=== PATIENT | male | born 1940 | race Caucasian/White ===

== ENCOUNTER 2016-10-08 16:24 | Emergency (ER) | payer OTHER ==
[2016-10-08 16:32] VITALS: BP 153/70; PULSE 61; TEMP 97.5; BMI 24.7
--- NOTE | 2016-10-08 16:38 | PDOC ---
History of Present Illness - General History Source: Patient Exam Limitations: No Limitations <Enid Lema - Last Filed: 10/08/16 18:45> - General History Source: Patient, EMS Exam Limitations: No Limitations - History of Present Illness Initial Comments: 10/08/16 16:55 The patient is a 76 year old male, with a significant past medical history of hypertension and COPD, who presents to the emergency department BIBA s/p unwitnessed mechanical fall earlier today. Patient reports falling several hours ago, however, EMS reports he fell several days ago. The patient reports he lives at home alone and was not able to get up on his own. Patient reports using his life alert to call EMS for assistance. EMS reports a laceration to the right arm and left forearm s/p fall. Patient denies any head trauma or LOC. The patient denies that he is on any blood thinners. The patient denies any chest pain, shortness of breath, diaphoresis or palpitations prior to or after fall. The patient denies any fever, chills, cough, headache, or dizziness. Allergies: None reported. Past Surgical History: None reported. Social History: Current everyday smoker. ETOH use. Denies drug use. PCP: Dr. Patel <Jeannie Samano - Last Filed: 10/08/16 18:49> - General Chief Complaint: Injury Stated Complaint: FALL Time Seen by Provider: 10/08/16 16:26 Past History - Past Medical History Anemia: No Asthma: No Cancer: No Cardiac Disorders: Yes CVA: No COPD: Yes CHF: No Dementia: No Diabetes: No GI Disorders: No Disorders: No HTN: Yes Hypercholesterolemia: Yes Liver Disease: No Suicide Attempt (Hx): No Seizures: No Thyroid Disease: No - Surgical History Abdominal Surgery: No Appendectomy: No Cardiac Surgery: No Cholecystectomy: No Lung Surgery: No Neurologic Surgery: No Orthopedic Surgery: Yes (HIP) - Immunization History Td Vaccination: No Immunization Up to Date: No - Psycho/Social/Smoking Cessation Hx Anxiety: No Suicidal Ideation: No Smoking Status: Yes Smoking History: Current every day smoker Have you smoked in the past 12 months: Yes Number of Cigarettes Smoked Daily: 20 Cigars Per Day: 0 Information on smoking cessation initiated: Yes 'Breaking Loose' booklet given: 10/08/16 Hx Alcohol Use: Yes Drug/Substance Use Hx: No Substance Use Type: Alcohol Hx Substance Use Treatment: No <Enid Lema - Last Filed: 10/08/16 18:45> <Jeannie Samano - Last Filed: 10/08/16 18:49> - Past Medical History Allergies/Adverse Reactions: Allergies Allergy/AdvReac Type Severity Reaction Status Date / Time No Known Allergies Allergy Verified 10/08/16 16:25 Home Medications: Ambulatory Orders Cholecalciferol (Vitamin D3) [Vitamin D] 2,000 unit PO DAILY 08/05/14 Ferrous Sulfate [Feosol] 325 mg PO DAILY 08/05/14 Losartan 50Mg/Hctz 12.5MG [Hyzaar -] 1 tab PO DAILY 08/05/14 Trauma Specific PMHX - Complaint Specific PMHX Back Injury: No <Enid Lema - Last Filed: 10/08/16 18:45> Review of Systems - Review of Systems Able to Perform ROS?: Yes Comments:: 10/08/16 16:55 GENERAL/CONSTITUTIONAL: No: fever, chills, weakness, loss of appetite. HEAD, EYES, EARS, NOSE AND THROAT: No: change in vision, ear pain, discharge, sore throat, throat swelling. CARDIOVASCULAR: No: chest pain, lightheadedness, palpitations, syncope RESPIRATORY: No: cough, shortness of breath, wheezing, hemoptysis, stridor. GASTROINTESTINAL: No: nausea, vomiting, abdominal cramping, diarrhea, rectal bleeding, constipation. GENITOURINARY: No: dysuria, hematuria, frequency, urgency, flank pain. MUSCULOSKELETAL: No: back pain, neck pain, joint pain, muscle swelling or pain SKIN AND BREASTS: No: lesions, pallor, rash or easy bruising. NEUROLOGIC: Yes: +mechanical fall. No: headache, vertigo, paresthesias, weakness ENDOCRINE: No: unexplained weight gain or loss HEMATOLOGIC/LYMPHATIC: No: anemia, easy bleeding, swelling nodes <Jeannie Samano - Last Filed: 10/08/16 18:49> *Physical Exam - Vital Signs Last Vital Signs Temp Pulse Resp BP Pulse Ox 97.5 F L 61 18 153/70 95 10/08/16 16:24 10/08/16 16:24 10/08/16 16:24 10/08/16 16:24 10/08/16 16:24 <Enid Lema - Last Filed: 10/08/16 18:45> - Vital Signs Last Vital Signs Temp Pulse Resp BP Pulse Ox 97.5 F L 61 18 153/70 95 10/08/16 16:24 10/08/16 16:24 10/08/16 16:24 10/08/16 16:24 10/08/16 16:24 - Physical Exam Comments: 10/08/16 16:55 GENERAL: The patient is in no acute distress. Alert and oriented x3. HEAD: Normal with no signs of trauma. EYES: PERRLA, EOMI, sclera anicteric, conjunctiva clear. ENT: Ears normal, nares patent, oropharynx clear without exudates. Moist mucous membranes. NECK: Normal range of motion, supple without lymphadenopathy, JVD, or masses. LUNGS: Breath sounds equal, clear to auscultation bilaterally. No wheezes, and no crackles. HEART:Regular rate and rhythm, normal S1 and S2 without murmur, rub or gallop. ABDOMEN: Soft, nontender, normoactive bowel sounds. No guarding, no rebound. EXTREMITIES: Normal range of motion, no edema. No clubbing or cyanosis. No erythema, or tenderness. NEUROLOGICAL: Cranial nerves II through XII grossly intact. Normal speech. No focal neurological deficits. MUSCULOSKELETAL: Back non-tender to palpation, no CVA tenderness SKIN: 3 skin tears (1 to the right lateral elbow and 2 to the left forearm). Warm, normal turgor, no rashes. <Jeannie Samano - Last Filed: 10/08/16 18:49> ED Treatment Course - RADIOLOGY Radiograph Interpretation: 10/08/16 18:48 EXAM: Head CT INTERPRETED BY: Dr. Dalal REVIEWED BY: Dr. Lema IMPRESSION: No significant interval change. Moderate atrophy and chronic microvascular ischemic changes without evidence of acute intracranial pathology. <Jeannie Samano - Last Filed: 10/08/16 18:49> Medical Decision Making - Medical Decision Making 10/08/16 16:38 A portion of this note was documented by scribe services under my direction. I have reviewed the details of the note, within reason, and agree with the documentation with the following case summary and management plan written by me. Nursing documentation reviewed and incorporated into medical decision making 10/08/16 17:50 THis 76 yo M presents to the ER via EMS s/p a fall from standing Pt was assisted to standing by passerbyers He was in the hallway of his apartment building Fall occurred several hours prior to arrival in the ER He denies head trauma, LOC, amneisa Pt denies pain in any location On examination: Pt is discheveled Wearing unclean clothing A&O x 3 RRR Lungs Clear Answering all questions appropriately Moves all extremities, no difficulty No external signs of head trauma 3 skin tears Will do CT head (given age, ?h/o alcohol abuse, high risk for SDH) Will give Boostrix given skin tears Will discharge to home PT has someone to pick him up 10/08/16 18:[address], no acute pathology Will discharge PT anxious to go home <Enid Lema - Last Filed: 10/08/16 18:45> *DC/Admit/Observation/Transfer - Discharge Dispostion Admit: No <Enid Lema - Last Filed: 10/08/16 18:45> - Attestations Scribe Attestion: 10/08/16 16:56 Documentation prepared by Jeannie Smaano, acting as medical records receptionist for Enid Lema MD. <Jeannie Samano - Last Filed: 10/08/16 18:49> Diagnosis at time of Disposition: Fall from standing Qualifiers: Encounter type: initial encounter Qualified Code(s): W19.XXXA - Unspecified fall, initial encounter Skin tear of elbow without complication Qualifiers: Encounter type: initial encounter Laterality: right Qualified Code(s): S51.011A - Laceration without foreign body of right elbow, initial encounter Skin tear of left forearm without complication Qualifiers: Encounter type: initial encounter Qualified Code(s): S51.812A - Laceration without foreign body of left forearm, initial encounter - Discharge Dispostion Disposition: HOME Condition at time of disposition: Improved - Referrals Referrals: Cali Patel MD [Primary Care Provider] - - Patient Instructions Printed Discharge Instructions: How to Prevent Falls, DI for Abrasion Additional Instructions: [place] Thank you for coming in to the ER Please be careful when walking Please call 911 if you fall and need help Please follow up with your primary care physician within 1 week Return to the ER for any other concerns or complaints
[2016-10-08] MEDS ORDERED: DIPHTH,PERTUSS(ACELL),TET 0.5 ML DISP.SYRIN IM ONE (16:48)
== END 2016-10-08 19:16 | disposition home or self-care (01) ==
LOC: FER 16:24
DX: S51.812A Laceration without foreign body of left forearm, initial encounter (principal); S51.011A Laceration without foreign body of right elbow, initial encounter; F17.210 Nicotine dependence, cigarettes, uncomplicated; J44.9 Chronic obstructive pulmonary disease, unspecified; I10 Essential (primary) hypertension; E78.00 Pure hypercholesterolemia, unspecified
CPT/HCPCS: 70450-TC; 90715; 99282-25

== ENCOUNTER 2016-11-03 19:43 | Emergency (ER) | payer OTHER ==
[2016-11-03 20:03] VITALS: BP 143/88; PULSE 72; TEMP 98.5; BMI 24.1
--- NOTE | 2016-11-03 20:21 | PDOC ---
History of Present Illness - History of Present Illness Initial Comments: 11/03/16 20:40 The patient is a 75 year old male, with a significant past medical history of hypertension, who presents to the emergency department via ems with a laceration to his right hand s/p falling today. The patient presents intoxicated and states he cannot recall the events of the fall, but does recall using his medical alert button which called for an ambulance. He states he walks with a cane at baseline. He denies any pain at this current time. He admits to drinking a couple of shots of scotch a day. The patient presents with his family members who reports the patient has been falling frequently. The patient states he would be willing to go for alcohol detox at this time. He denies chest pain, shortness of breath, headache and dizziness. He denies fever, chills, nausea, vomit, diarrhea and constipation. He denies dysuria, frequency, urgency and hematuria. Allergies: NKDA Social history: daily tobacco use (pack a day), lives home alone. PCP - Dr. Mcclain <Emily Messer - Last Filed: 11/03/16 20:49> <Kecia Hooks - Last Filed: 11/04/16 02:41> - General Chief Complaint: Injury Stated Complaint: RIGHT HAND INJURY Time Seen by Provider: 11/03/16 19:54 Past History <Emily Messer - Last Filed: 11/03/16 20:49> - Past Medical History Anemia: No Asthma: No Cancer: No Cardiac Disorders: Yes CVA: No COPD: Yes CHF: No Dementia: No Diabetes: No GI Disorders: No Disorders: No HTN: Yes Hypercholesterolemia: Yes Liver Disease: No Psychiatric Problems: Yes (ALCOHOLISM) Suicide Attempt (Hx): No Seizures: No Thyroid Disease: No - Surgical History Abdominal Surgery: No Appendectomy: No Cardiac Surgery: No Cholecystectomy: No Lung Surgery: No Neurologic Surgery: No Orthopedic Surgery: Yes (HIP) - Immunization History Td Vaccination: No Immunization Up to Date: No - Psycho/Social/Smoking Cessation Hx Anxiety: No Suicidal Ideation: No Smoking Status: Yes Smoking History: Current every day smoker Have you smoked in the past 12 months: Yes Number of Cigarettes Smoked Daily: 20 Cigars Per Day: 0 Information on smoking cessation initiated: Yes 'Breaking Loose' booklet given: 10/08/16 Hx Alcohol Use: Yes (CHRONIC ALCOHOLISM) Drug/Substance Use Hx: No Substance Use Type: Alcohol Hx Substance Use Treatment: No <Kecia Hooks - Last Filed: 11/04/16 02:41> - Past Medical History Allergies/Adverse Reactions: Allergies Allergy/AdvReac Type Severity Reaction Status Date / Time No Known Allergies Allergy Verified 10/08/16 16:25 Home Medications: Ambulatory Orders Cholecalciferol (Vitamin D3) [Vitamin D] 2,000 unit PO DAILY 08/05/14 Ferrous Sulfate [Feosol] 325 mg PO DAILY 08/05/14 Losartan 50Mg/Hctz 12.5MG [Hyzaar -] 1 tab PO DAILY 08/05/14 Review of Systems - Review of Systems Able to Perform ROS?: Yes Comments:: 11/03/16 20:41 CONSTITUTIONAL: Absent: fever, chills, diaphoresis, generalized weakness, malaise, loss of appetite HEENT: Absent: rhinorrhea, nasal congestion, throat pain, throat swelling, difficulty swallowing,mouth swelling, ear pain, eye pain, visual Changes CARDIOVASCULAR: Absent: chest pain, syncope, palpitations, irregular heart rate, lightheadedness , peripheral edema RESPIRATORY: Absent: cough, shortness of breath, dyspnea with exertion, orthopnea, wheezing, stridor, hemoptysis GASTROINTESTINAL: Absent: abdominal pain, abdominal distension, nausea, vomiting, diarrhea, constipation, melena, hematochezia GENITOURINARY: Absent: dysuria, frequency, urgency, hesitancy, hematuria, flank pain, genital pain MUSCULOSKELETAL: Absent: myalgia, arthralgia, joint swelling SKIN: (+) laceration to dorsum of right hand. Absent: rash, itching, pallor HEMATOLOGIC/IMMUNOLOGIC: Absent: easy bleeding, easy bruising, lymphadenopathy, frequent infections ENDOCRINE: Absent: unexplained weight gain, unexplained weight loss, heat intolerance, cold intolerance NEUROLOGIC: Absent: headache, focal weakness or paresthesias, dizziness, unsteady gait, seizure, mental status changes, bladder or bowel incontinence PSYCHIATRIC: Absent: anxiety, depression, suicidal or homicidal ideation, hallucinations. <Emily Messer - Last Filed: 11/03/16 20:49> *Physical Exam - Vital Signs Last Vital Signs Temp Pulse Resp BP Pulse Ox 98.5 F 72 18 143/88 97 11/03/16 19:48 11/03/16 19:48 11/03/16 19:48 11/03/16 19:48 11/03/16 19:48 - Physical Exam Comments: 11/03/16 20:42 GENERAL: The patient is awake, alert, and oriented to person, place and time, + EtOH on breath. in no acute distress. HEAD: Normal with no signs of trauma. EYES: Pupils equal, round and reactive to light, extraocular movements intact, sclera anicteric, conjunctiva clear with no pallor. ENT: Ears normal, nares patent, oropharynx clear without exudates. Moist mucous membranes. NECK: Normal range of motion, supple without lymphadenopathy, JVD, or masses. LUNGS: Breath sounds equal, clear to auscultation bilaterally. No wheeze/ crackles. HEART: Regular rate and rhythm, normal S1 and S2 without murmur or rub. ABDOMEN: Soft/nontender/nondistended. BS wnl. No guarding or rebound. No palpable masses. No hepatosplenomegaly. EXTREMITIES: Normal range of motion, no edema. No clubbing or cyanosis. No cords , erythema, or tenderness. NEUROLOGICAL: Cranial nerves II through XII grossly intact. Normal speech, normal gait. PSYCH: Normal mood, normal affect. SKIN: (+) 2cm, superficial, linear skin tear on dorsum of right hand. Superficial abrasion over lateral epicondyle of right upper extremity. Warm, Dry , normal turgor, no rashes or lesions noted. <Emily Messer - Last Filed: 11/03/16 20:49> - Vital Signs Last Vital Signs Temp Pulse Resp BP Pulse Ox 98.5 F 72 18 143/88 97 11/03/16 19:48 11/03/16 19:48 11/03/16 19:48 11/03/16 19:48 11/03/16 19:48 <Kecia Hooks - Last Filed: 11/04/16 02:41> ED Treatment Course - LABORATORY CBC & Chemistry Diagram: 11/03/16 20:45 11/03/16 20:45 <Kecia Hooks - Last Filed: 11/04/16 02:41> Medical Decision Making - Medical Decision Making Documentation has been prepared under my direction and personally reviewed by me in its entirety. I attest that this documented accurately reflects all work, treatment, procedures and medical decision making performed by me. As noted above, this 76-year-old man with multiple medical problems and chronic alcoholism is brought in by ambulance after a fall at home earlier today. Patient is generally without complaints except for mild discomfort in the right hand. Patient is accompanied by his sister and his niece. Family are concerned that patient has had history of recurrent falls, directly related to his alcohol abuse. Because the patient lives alone, he is at very high risk for critical injury secondary to these falls. They have propose that patient be admitted for inpatient detox and rehabilitation of his alcohol abuse. The patient agrees to this plan. Medical clearance of patient is performed: Other than a mild increase in his BUN /creatinine from previous laboratory values (creatinine now 2.2; was 1.7 in March,), no new laboratory abnormalities are present. Twelve-lead EKG shows normal sinus rhythm at 60 beats per minute; mild first- degree AV block is present but otherwise there is no change from previous EKG from 03/28. At that time, WA interval was 20.4 milliseconds. WA interval today is 21.6. No ST or T-wave abnormalities present Right hand x-ray shows no fracture or dislocation. Significant amount of DJD is present Chest x-ray shows no infiltrates/effusions or masses Alcohol level is elevated 175 milligrams per deciliter Mr. Rai from admissions at [facility] contacted: bed available and patient can proceed to [facility]. Patient transported via security staff to [facility], detox unit in stable condition . <Kecia Hooks - Last Filed: 11/04/16 02:41> *DC/Admit/Observation/Transfer - Attestations Scribe Attestion: 11/03/16 20:45 Documentation prepared by Emily Messer, acting as medical health researcher for Kecia Hooks MD <Emily Messer - Last Filed: 11/03/16 20:49> <Kecia Hooks - Last Filed: 11/04/16 02:41> Diagnosis at time of Disposition: Alcohol abuse Skin tear of right hand without complication Qualifiers: Encounter type: initial encounter Qualified Code(s): S61.411A - Laceration without foreign body of right hand, initial encounter Nicotine addiction Qualifiers: Nicotine product type: cigarettes Substance use status: uncomplicated Qualified Code(s): F17.210 - Nicotine dependence, cigarettes, uncomplicated - Discharge Dispostion Disposition: I.P. ALCOHOL/SUBS ABUSE REHAB Condition at time of disposition: Fair - Patient Instructions Additional Instructions: go to [facility] now for admission as planned
[2016-11-03 21:04] LABS: BASOPHIL 2.6 % (0-2.0); EOSINOPHIL 3.1 % (0-4.5); MCH 33.4 pg (25.7-33.7); MCHC 34.3 g/dl (32.0-35.9); MEAN CELL VOLUME 97.4 fl (80-96); MEAN PLT VOLUME 8.2 fl (7.5-11.1); NEUTROPHILS 63.6 % (42.8-82.8); PLATELET COUNT 162 K/MM3 (134-434); RDW 13.4 % (11.9-15.9); WHITE BLOOD COUNT 9.3 K/mm3 (4.0-10.8)
[2016-11-03 21:11] LABS: INR 0.93 (0.82-1.09); PROTHROMBIN TIME (PATIENT) 10.4 SEC (10.2-13.0)
[2016-11-03 21:18] LABS: ALBUMIN 3.4 g/dl (3.5-5.0); ALK PHOS 58 U/L (32-92); ANION GAP 11 (8-16); BILIRUBIN,TOTAL 0.4 mg/dl (0.2-1.0); CALCIUM 8.3 mg/dl (8.4-10.2); CO2 23 mmol/L (22-28); CPK(DFH) 33 IU/L (38-174); CREATININE 2.2 mg/dl (0.6-1.3); GLUCOSE,RANDOM 76 mg/dl (74-106); SGOT/AST 19 U/L (10-42); SGPT/ALT 15 U/L (10-40); TOT PROT 6.7 g/dl (6.4-8.3)
[2016-11-03 21:49] LABS: TROPONIN I (DFP) < 0.03 ng/ml (0.03-0.50)
[2016-11-03 22:19] LABS: PH,URINE 5.5 (4.5-8); URINE APPEARANCE Clear; URINE BILIRUBIN Negative (NEGATIVE); URINE BLOOD Trace-intact (NEGATIVE); URINE GLUCOSE (UA) Negative (NEGATIVE); URINE KETONE Negative (NEGATIVE); URINE LEUK ESTERASE Negative (NEGATIVE); URINE NITRITE Negative (NEGATIVE); URINE PROTEIN Negative (NEGATIVE); URINE UROBILINOGEN 0.2 E.U/dl (0.2-1.0)
[2016-11-03 22:21] LABS: URINE COLOR YELLOW
--- NOTE | 2016-11-05 11:50 | EKG ---
Test Reason : Blood Pressure : / mmHG Vent. Rate : 060 BPM Atrial Rate : 060 BPM P-R Int : 216 ms QRS Dur : 092 ms QT Int : 484 ms P-R-T Axes : 017 -57 062 degrees QTc Int : 484 ms SINUS RHYTHM WITH 1ST DEGREE A-V BLOCK LEFT ANTERIOR FASCICULAR BLOCK ABNORMAL ECG NO PREVIOUS ECGS AVAILABLE Confirmed by KATIE LOUIS MD ([id number]) on 11/05/2016 11:50:12 AM Referred By: HARMONY Confirmed By:KATIE LOUIS MD
== END 2016-11-03 22:43 | disposition other institution (70) ==
LOC: FER 19:43
DX: S61.411A Laceration without foreign body of right hand, initial encounter (principal); F10.120 Alcohol abuse with intoxication, uncomplicated; F17.210 Nicotine dependence, cigarettes, uncomplicated; J44.9 Chronic obstructive pulmonary disease, unspecified; I10 Essential (primary) hypertension; E78.00 Pure hypercholesterolemia, unspecified; W19.XXXA Unspecified fall, initial encounter; Z91.81 History of falling; Y93.9 Activity, unspecified; Y92.9 Unspecified place or not applicable; Z99.89 Dependence on other enabling machines and devices
CPT/HCPCS: 36415; 71020-TC; 73130-TC-RT; 80053; 80307; 81003; 82550; 84484; 85025; 85610; 93005; 99282-25

== ENCOUNTER 2016-11-03 23:13 | Inpatient (IN) | payer OTHER ==
[2016-11-03 23:34] VITALS: BMI 21.3
--- NOTE | 2016-11-03 23:38 | HP ---
CIWA Score - CIWA Score Nausea/Vomitin-Mild Nausea/No Vomiting Muscle Tremors: 2 Anxiety: 3 Agitation: 3 Paroxysmal Sweats: 3 Orientation: 1-Uncertain about Date Tacttile Disturbances: 0-None Auditory Disturbances: 0-None Visual Disturbances: 0-None Headache: 1-Very Mild CIWA-Ar Total Score: 14 Admission ROS S - HPI Chief Complaint: WITHDRAWAL SYMPTOMS Allergies/Adverse Reactions: Allergies Allergy/AdvReac Type Severity Reaction Status Date / Time No Known Allergies Allergy Verified 10/08/16 16:25 History of Present Illness: 76 Y.O. MAN WITH AN EXTENSIVE HISTORY OF ALCOHOL DEPENDENCE WAS TRANSFERRED HERE FROM [facility] TO DETOX TREATMENT. PATIENT REPORTS HE HAS NEVER SOUGHT DETOX TREATMENT BEFORE. Exam Limitations: Intoxication - Ebola screening Have you traveled outside of the country in the last 21 days: No (N) Have you had contact with anyone from an Ebola affected area: No Do you have a fever: No - Review of Systems Constitutional: No Symptoms Reported EENT: reports: Tearing, Dental Problems (MSISSING TEETH) Respiratory: reports: No Symptoms reported Cardiac: reports: No Symptoms Reported GI: reports: No Symptoms Reported : reports: No Symptoms Reported Musculoskeletal: reports: Other (UNSTEADY GAIT-USES A CANE) Integumentary: reports: Bruising Neuro: reports: Tremors, Unsteady Gait Endocrine: reports: No Symptoms Reported Hematology: reports: No Symptoms Reported Psychiatric: reports: Mood/Affect Appropiate, Orientated x3, Anxious Other Systems: Reviewed and Negative Patient History - Patient Medical History Hx Anemia: No Hx Asthma: No Hx Chronic Obstructive Pulmonary Disease (COPD): Yes Hx Cancer: No Hx Cardiac Disorders: Yes Hx Congestive Heart Failure: No Hx Hypertension: Yes Hx Hypercholesterolemia: Yes Hx Pacemaker: No HX Cerebrovascular Accident: No Hx Seizures: No Hx Dementia: No Hx Diabetes: No Hx Gastrointestinal Disorders: No Hx Liver Disease: No Hx Genitourinary Disorders: No Hx Sexually Transmitted Disorders: No Hx Renal Disease (ESRD): No Hx Thyroid Disease: No Hx Human Immunodeficiency Virus (HIV): No Hx Hepatitis C: No Hx Depression: No Hx Suicide Attempt: No Hx Bipolar Disorder: No Hx Schizophrenia: No - Patient Surgical History Past Surgical History: Yes Hx Neurologic Surgery: No Hx Cataract Extraction: No Hx Cardiac Surgery: No Hx Lung Surgery: No Hx Breast Surgery: No Hx Breast Biopsy: No Hx Abdominal Surgery: No Hx Appendectomy: No Hx Cholecystectomy: No Hx Genitourinary Surgery: No Hx Section: No Hx Orthopedic Surgery: Yes (HIP) Hx Hysterectomy: No Anesthesia Reaction: No - PPD History Previous Implant?: Yes Documented Results: Negative w/o proof PPD to be Administered?: Yes - Reproductive History Patient is a Female of Child Bearing Age (11 -55 yrs old): No - Smoking Cessation Smoking history: Current every day smoker Have you smoked in the past 12 months: Yes Aproximately how many cigarettes per day: 20 Cigars Per Day: 0 Hx Chewing Tobacco Use: No Initiated information on smoking cessation: Yes 'Breaking Loose' booklet given: 11/03/16 - Substance & Tx. History Hx Alcohol Use: Yes Hx Substance Use: No Substance Use Type: Alcohol Hx Substance Use Treatment: Yes - Substances Abused Alcohol Route: Oral Frequency: Daily Amount used: MULTIPLE SHOTS OF SCOTCH Age of first use: 16 Date of Last Use: 11/03/16 Family Disease History - Family Disease History Family History: Denies Admission Physical Exam [facility] - Vital Signs Vital Signs: Last Vital Signs Temp Pulse Resp BP Pulse Ox 96 F L 69 17 187/85 11/03/16 23:33 11/03/16 23:33 11/03/16 23:33 11/03/16 23:33 - Physical General Appearance: Yes: Disheveled, Intoxicated, Thin, Irritable, Anxious HEENTM: Yes: Hearing grossly Normal, Normal Voice Respiratory: Yes: Chest Non-Tender, Lungs Clear, Normal Breath Sounds, No Respiratory Distress, No Accessory Muscle Use Breast: Yes: Breast Exam Deferred Cardiology: Yes: Regular Rhythm, Regular Rate, S1, S2 Abdominal: Yes: Non Tender, Flat, Soft Genitourinary: Yes: Other (NO COMPLAINTS REPORTED) Back: Yes: Normal Inspection Musculoskeletal: Yes: Muscle weakness, Other (UNSTEADY GAIT) Extremities: Yes: Tremors Neurological: Yes: certification and selection specialist II-XII NML intact, Alert, Normal Mood/Affect, Normal Response Integumentary: Yes: Other (BRUISES; 2 CM LACERATION TO RIGHT HAND) Lymphatic: Yes: Within Normal Limits - Diagnostic (1) COPD (chronic obstructive pulmonary disease) Current Visit: Yes Status: Chronic Qualifiers: COPD type: COPD with acute exacerbation Qualified Code(s): J44.1 - Chronic obstructive pulmonary disease with (acute) exacerbation (2) HTN (hypertension) Current Visit: Yes Status: Chronic Qualifiers: Hypertension type: essential hypertension Qualified Code(s): I10 - Essential (primary) hypertension (3) Nicotine addiction Current Visit: Yes Status: Chronic Qualifiers: Nicotine product type: cigarettes Substance use status: uncomplicated Qualified Code(s): F17.210 - Nicotine dependence, cigarettes, uncomplicated (4) Alcohol dependence with uncomplicated withdrawal Current Visit: Yes Status: Chronic (5) Gait disturbance Current Visit: Yes Status: Chronic (6) Laceration of right hand without foreign body Current Visit: Yes Status: Chronic Cleared for Admission S - Detox or Rehab S Level of Care: Medically Managed Detox Regimen/Protocol: Librmalick
[2016-11-03] MEDS ORDERED: BACITRACIN 30 GM TUBE TOPICAL OINTMENT TP ONE (23:59)
[2016-11-04] MEDS ORDERED: P-EPHED 60MG/TRIPROLIDI 2.5MG TABLET PO PRN (00:03)
[2016-11-04] MEDS ORDERED: ACETAMINOPHEN 325 MG TABLET (FP) PO PRN (00:03)
[2016-11-04] MEDS ORDERED: chlordiazePOXIDE HCL 25 MG CAPSULE PO ONE (00:03)
[2016-11-04] MEDS ORDERED: LOPERAMIDE HCL 2 MG CAPSULE PO PRN (00:03)
[2016-11-04] MEDS ORDERED: hydrOXYzine PAMOATE 50 MG CAPSULE (FP) PO PRN (00:03)
[2016-11-04] MEDS ORDERED: MAGNESIUM CITRATE 300 ML BOTTLE PO PRN (00:03)
[2016-11-04] MEDS ORDERED: NICOTINE POLACRILEX 2 MG GUM BUC PRN (00:03)
[2016-11-04] MEDS ORDERED: IBUPROFEN 400 MG TABLET (FP) PO PRN (00:03)
[2016-11-04] MEDS ORDERED: chlordiazePOXIDE HCL 25 MG CAPSULE PO PRN (00:03)
[2016-11-04] MEDS ORDERED: diphenhydrAMINE HCL 50 MG CAPSULE PO PRN (00:03)
[2016-11-04] MEDS ORDERED: guaiFENesin/D-METHORPHAN HB 10 ML UNIT-DOSE CUPS PO PRN (00:03)
[2016-11-04] MEDS ORDERED: MAG HYDROX/AL HYDROX/SIMETH 30 ML UNIT-DOSE CUP PO PRN (00:03)
[2016-11-04] MEDS ORDERED: MAGNESIUM HYDROX 2400MG/30ML ORAL SUSPENSION 30 ML CUP PO PRN (00:03)
[2016-11-04] MEDS ORDERED: MENTHOL/PHENOL 1 EACH UD MM PRN (00:03)
[2016-11-04] MEDS: chlordiazePOXIDE HCL 25 MG CAPSULE PO SCH ×4 (06:02→23:20)
[2016-11-04] MEDS: cloNIDine HCL 0.1 MG TABLET PO PRN (07:41)
--- NOTE | 2016-11-04 10:41 | PN ---
S CIWA - CIWA Score Nausea/Vomitin-No Nausea/No Vomiting Muscle Tremors: 3 Anxiety: 2 Agitation: 4-Moderately Restless Paroxysmal Sweats: 3 Orientation: 0-Oriented Tacttile Disturbances: 0-None Auditory Disturbances: 0-None Visual Disturbances: 0-None Headache: 0-None Present CIWA-Ar Total Score: 12 BHS Progress Note (SOAP) Subjective: sweats irritable agitation interrupted sleep Objective: 11/04/16 10:40 Vital Signs Temperature 96.6 F L 11/04/16 06:57 Pulse Rate 119 H 11/04/16 07:59 Respiratory Rate 18 11/04/16 06:57 Blood Pressure 169/85 11/04/16 07:59 O2 Sat by Pulse Oximetry (%) labs pending awake/alert ambulating with wheelchair use no acute distress Assessment: 11/04/16 10:41 withdrawal sx Plan: continue detox increase fluids labs pending
[2016-11-04] MEDS: FERROUS SO4 325 MG TABLET (FP) PO SCH (11:47)
[2016-11-04] MEDS: PRENATAL VITAMINS W/ FOLIC ACID TABLET (FP) PO SCH (11:47)
[2016-11-04] MEDS: NICOTINE 21 MG/24 HOURS TOPICAL PATCH TD SCH (11:55)
[2016-11-04] MEDS: LOSARTAN 50MG/HCTZ 12.5MG 1 TAB (FP) PO SCH (12:03)
[2016-11-04] MEDS: THIAMINE HCL 100 MG TABLET (FP) PO SCH (23:20)
[2016-11-05] MEDS: chlordiazePOXIDE HCL 25 MG CAPSULE PO SCH ×4 (05:40→23:19)
[2016-11-05] MEDS: cloNIDine HCL 0.1 MG TABLET PO PRN (07:18)
--- NOTE | 2016-11-05 08:26 | EKG ---
Test Reason : Blood Pressure : / mmHG Vent. Rate : 065 BPM Atrial Rate : 065 BPM P-R Int : 210 ms QRS Dur : 088 ms QT Int : 466 ms P-R-T Axes : 027 -70 048 degrees QTc Int : 484 ms SINUS RHYTHM WITH 1ST DEGREE A-V BLOCK LEFT ANTERIOR FASCICULAR BLOCK ABNORMAL ECG NO PREVIOUS ECGS AVAILABLE Confirmed by RA TIAN MD ([id number]) on 11/05/2016 8:25:41 AM Referred By: Confirmed By:RA TIAN MD
[2016-11-05 10:15] LABS: MCH 32.8 pg (25.7-33.7); MCHC 32.8 g/dl (32.0-35.9); MEAN PLT VOLUME 8.7 fl (7.5-11.1); PLATELET COUNT 125 K/MM3 (134-434); RDW 14.1 % (11.9-15.9); WHITE BLOOD COUNT 8.2 K/mm3 (4.0-10.0)
[2016-11-05 10:49] LABS: ALBUMIN 2.7 g/dl (3.4-5.0); BILIRUBIN,TOTAL 0.4 mg/dL (0.2-1.0); CALCIUM 8.3 mg/dL (8.5-10.1); COCKROFT - GAULT 25.77; TOT PROT 5.9 g/dl (6.4-8.2)
[2016-11-05] MEDS: FERROUS SO4 325 MG TABLET (FP) PO SCH (11:53)
[2016-11-05] MEDS: PRENATAL VITAMINS W/ FOLIC ACID TABLET (FP) PO SCH (11:53)
[2016-11-05] MEDS: NICOTINE 21 MG/24 HOURS TOPICAL PATCH TD SCH (11:54)
[2016-11-05] MEDS: LOSARTAN 50MG/HCTZ 12.5MG 1 TAB (FP) PO SCH (11:54)
--- NOTE | 2016-11-05 15:58 | PN ---
S CIWA - CIWA Score Nausea/Vomitin Muscle Tremors: 2 Anxiety: 2 Agitation: 2 Paroxysmal Sweats: 2 Orientation: 0-Oriented Tacttile Disturbances: 2-Mild Itch/Numbness/Burn Auditory Disturbances: 0-None Visual Disturbances: 0-None Headache: 0-None Present CIWA-Ar Total Score: 12 BHS Progress Note (SOAP) Subjective: feeling better c/o left rib pains -previous injury Objective: 11/05/16 15:56 Vital Signs Temperature 97.6 F 11/05/16 14:03 Pulse Rate 73 11/05/16 14:03 Respiratory Rate 16 11/05/16 14:03 Blood Pressure 101/69 11/05/16 14:03 O2 Sat by Pulse Oximetry (%) Laboratory Tests 11/05/16 11/05/16 07:00 07:00 WBC 8.2 RBC 4.56 Hgb 15.0 Hct 45.6 MCV 100.0 H MCHC 32.8 RDW 14.1 Plt Count 125 L MPV 8.7 Sodium 147 H Potassium 3.8 Chloride 112 H Carbon Dioxide 27 Anion Gap 8 BUN 36 H Creatinine 2.0 H Creat Clearance w eGFR 32.48 Random Glucose 81 Calcium 8.3 L Total Bilirubin 0.4 AST 12 L ALT 15 Alkaline Phosphatase 63 Total Protein 5.9 L Albumin 2.7 L pt aox3 lying in bed in nad Assessment: 11/05/16 15:57 withdrawal sx's rib pain renal insuffficency Plan: cont. detox increase fluids d/c mg products
[2016-11-05 18:16] LABS: URINE APPEARANCE CLEAR; URINE BILIRUBIN NEGATIVE (NEGATIVE); URINE BLOOD NEGATIVE (NEGATIVE); URINE COLOR YELLOW; URINE GLUCOSE (UA) NEGATIVE (NEGATIVE); URINE KETONE NEGATIVE (NEGATIVE); URINE LEUK ESTERASE NEGATIVE (NEGATIVE); URINE NITRITE NEGATIVE (NEGATIVE); URINE UROBILINOGEN NEGATIVE E.U./dl (0.2-1.0)
[2016-11-05 18:32] LABS: URINE PROTEIN 1+ (NEGATIVE)
[2016-11-05 18:46] LABS: URINE MUCUS RARE; URINE RBC 1 /hpf (0-3); URINE WBC 2 /hpf (3-5)
[2016-11-05] MEDS: THIAMINE HCL 100 MG TABLET (FP) PO SCH (22:55)
[2016-11-06] MEDS: chlordiazePOXIDE 5 MG CAPSULE PO SCH ×4 (06:01→23:27)
--- NOTE | 2016-11-06 11:44 | PN ---
BHS Progress Note (SOAP) Subjective: sweats feeling better Objective: 11/06/16 11:40 Vital Signs Temperature 97 F L 11/06/16 09:38 Pulse Rate 71 11/06/16 09:38 Respiratory Rate 16 11/06/16 09:38 Blood Pressure 152/77 11/06/16 09:38 O2 Sat by Pulse Oximetry (%) awake/alert lying in bed no acute distress Assessment: 11/06/16 11:40 withdrawal sx Plan: continue detox increase fluids d/c in am
[2016-11-06] MEDS: PRENATAL VITAMINS W/ FOLIC ACID TABLET (FP) PO SCH (13:05)
[2016-11-06] MEDS: LOSARTAN 50MG/HCTZ 12.5MG 1 TAB (FP) PO SCH (13:05)
[2016-11-06] MEDS: FERROUS SO4 325 MG TABLET (FP) PO SCH (13:05)
[2016-11-06] MEDS: NICOTINE 21 MG/24 HOURS TOPICAL PATCH TD SCH (13:05)
[2016-11-06] MEDS: BACITRACIN 0.9 GM PACKET TP PRN (16:18)
[2016-11-06] MEDS: THIAMINE HCL 100 MG TABLET (FP) PO SCH (23:27)
[2016-11-07] MEDS: chlordiazePOXIDE HCL 10 MG CAPSULE PO SCH ×2 (06:02→11:18)
[2016-11-07] MEDS: cloNIDine HCL 0.1 MG TABLET PO PRN (07:25)
--- NOTE | 2016-11-07 08:31 | PN ---
S Progress Note (SOAP) Subjective: alert,no complaint Objective: 11/07/16 08:30 Vital Signs Temperature 96.6 F L 11/07/16 06:00 Pulse Rate 64 11/07/16 06:00 Respiratory Rate 18 11/07/16 06:00 Blood Pressure 161/77 11/07/16 06:00 O2 Sat by Pulse Oximetry (%) Assessment: 11/07/16 08:30 detox completed,no withdrawal symptom Plan: discharge today,follow up with after care program as arrangement
--- NOTE | 2016-11-07 08:36 | DS ---
[facility] Detox Discharge Summary Admission Date: 11/03/16 Discharge Date: 11/07/16 - History Present History: Alcohol Dependence Additional Comments: follow up with after [facility] program as arrangement and pmd for medical problem Pertinent Past History: copd hypertension - Physical Exam Results Vital Signs: Vital Signs Temperature 96.6 F L 11/07/16 06:00 Pulse Rate 64 11/07/16 06:00 Respiratory Rate 18 11/07/16 06:00 Blood Pressure 161/77 11/07/16 06:00 O2 Sat by Pulse Oximetry (%) Pertinent Admission Physical Exam Findings: withdrawal symptom - Treatment Hospital Course: Detox Protocol Followed, Detoxed Safely, Responded well, Discharged Condition Good Patient has Accepted a Rehab Referral to: declined - Medication Discharge Medications: Ambulatory Orders Cholecalciferol (Vitamin D3) [Vitamin D] 2,000 unit PO DAILY 08/05/14 Ferrous Sulfate [Feosol] 325 mg PO DAILY 08/05/14 Losartan 50Mg/Hctz 12.5MG [Hyzaar -] 1 tab PO DAILY 08/05/14
--- NOTE | 2016-11-07 08:39 | PN ---
BHS Progress Note Note: addendum patient has all medications
[2016-11-07] MEDS: PRENATAL VITAMINS W/ FOLIC ACID TABLET (FP) PO SCH (10:31)
[2016-11-07] MEDS: LOSARTAN 50MG/HCTZ 12.5MG 1 TAB (FP) PO SCH (10:32)
[2016-11-07] MEDS: BACITRACIN 0.9 GM PACKET TP PRN (10:32)
[2016-11-07] MEDS: NICOTINE 21 MG/24 HOURS TOPICAL PATCH TD SCH (10:32)
[2016-11-07] MEDS: FERROUS SO4 325 MG TABLET (FP) PO SCH (10:32)
[2016-11-07 10:47] VITALS: BP 131/61; PULSE 63; TEMP 96.8
== END 2016-11-07 11:32 | disposition home or self-care (01) | DRG 897 ==
LOC: YASAS 23:13 → Y6N 23:44
PROVIDERS: ADMIT Internal Medicine Addiction Medicine; ATTEND Internal Medicine Addiction Medicine
PROC: HZ2ZZZZ Detoxification Services for Substance Abuse Treatment (ICD-10-PCS; principal; 2016-11-07)
DX: F10.230 Alcohol dependence with withdrawal, uncomplicated (principal); J44.1 Chronic obstructive pulmonary disease with (acute) exacerbation; F17.210 Nicotine dependence, cigarettes, uncomplicated; I10 Essential (primary) hypertension; R26.81 Unsteadiness on feet; M62.81 Muscle weakness (generalized); R26.2 Difficulty in walking, not elsewhere classified; S61.411D Laceration without foreign body of right hand, subsequent encounter; W19.XXXD Unspecified fall, subsequent encounter; Y92.89 Other specified places as the place of occurrence of the external cause; Y99.9 Unspecified external cause status
CPT/HCPCS: 36415; 80053; 81003; 81015; 85027; 86593; 93005; 93010

== ENCOUNTER 2016-12-04 06:33 | Emergency (ER) | payer OTHER ==
[2016-12-04 06:47] VITALS: PULSE 85; TEMP 98.2; BMI 21.1
[2016-12-04] MEDS ORDERED: OXYCODONE/APAP 5/325MG COMBO TABLET PO ONE (07:19)
--- NOTE | 2016-12-04 07:37 | PDOC ---
History of Present Illness - General Chief Complaint: Injury Stated Complaint: BIBA, FALL Time Seen by Provider: 12/04/16 07:12 - History of Present Illness Initial Comments: 12/04/16 07:58 76-year-old male with a past medical history of alcohol abuse, hypertension, COPD, and multiple falls Patient was drinking heavily yesterday, and states his last drink was late yesterday afternoon At some point during the night he fell out of his chair, and landed on his left side, and called the police They came and helped him back up into his chair He called EMS again this morning, when he realized that his left leg was hurting him He denies any head injury He denies any chest pain or shortness of breath He states that his COPD has been "okay" the past week, with no new symptoms He denies any other complaints at this time Remainder of the review of systems is negative Patient's only to complaints at this time is his left leg pain, and that he's very hungry and wants some breakfast He denies any history of alcohol withdrawal seizures, DTs, or alcohol withdraw shakes Past History - Past Medical History Allergies/Adverse Reactions: Allergies Allergy/AdvReac Type Severity Reaction Status Date / Time No Known Allergies Allergy Verified 10/08/16 16:25 Home Medications: Ambulatory Orders Cholecalciferol (Vitamin D3) [Vitamin D3] 2,000 unit PO DAILY 08/05/14 Ferrous Sulfate [Feosol] 325 mg PO DAILY 08/05/14 Losartan 50Mg/Hctz 12.5MG [Hyzaar -] 1 tab PO DAILY 08/05/14 Anemia: No Asthma: No Cancer: No Cardiac Disorders: No CVA: No COPD: No CHF: No Dementia: No Diabetes: No GI Disorders: No Disorders: No HTN: No Hypercholesterolemia: Yes Kidney Stones: No Liver Disease: No Psychiatric Problems: Yes (ALCOHOLISM) Suicide Attempt (Hx): No Seizures: No Thyroid Disease: No - Surgical History Abdominal Surgery: No Appendectomy: No Cardiac Surgery: No Cholecystectomy: No Lung Surgery: No Neurologic Surgery: No Orthopedic Surgery: Yes (HIP) - Reproductive History Testicular Surgery: No - Immunization History Td Vaccination: No Immunization Up to Date: No - Psycho/Social/Smoking Cessation Hx Anxiety: No Suicidal Ideation: No Smoking Status: Yes Smoking History: Current every day smoker Have you smoked in the past 12 months: Yes Number of Cigarettes Smoked Daily: 30 Cigars Per Day: 0 Information on smoking cessation initiated: Yes 'Breaking Loose' booklet given: 12/04/16 Hx Alcohol Use: Yes Drug/Substance Use Hx: No Substance Use Type: Alcohol Hx Substance Use Treatment: No Review of Systems - Review of Systems Able to Perform ROS?: Yes Comments:: 12/04/16 08:00 12 point review of systems is as per history of present illness and otherwise negative *Physical Exam - Vital Signs Last Vital Signs Temp Pulse Resp BP Pulse Ox 98.2 F 85 14 170/87 94 L 12/04/16 06:41 12/04/16 06:41 12/04/16 06:41 12/04/16 06:41 12/04/16 06:41 - Physical Exam Comments: 12/04/16 08:01 Physical exam Last Vital Signs Temp Pulse Resp BP Pulse Ox 98.2 F 85 14 170/87 94 L 12/04/16 06:41 12/04/16 06:41 12/04/16 06:41 12/04/16 06:41 12/04/16 06:41 GENERAL: The patient is awake, alert, disheveled, with poor personal hygiene HEAD: Normal with no signs of trauma. EYES: sclera anicteric, conjunctiva are normal. ENT: Mucous membranes slightly dry NECK: Normal range of motion, supple No C-spine tenderness LUNGS: Essentially clear bilaterally HEART: Regular rate and rhythm, normal S1 and S2 without murmur, rub or gallop. ABDOMEN: Soft, nontender, normoactive bowel sounds. No guarding, no rebound. No masses appreciated. There is no rib tenderness to palpation EXTREMITIES: There is diffuse tenderness left hip, left thigh, left knee, left tib-fib, and left ankle, without point tenderness There is no right-sided tenderness There is full range of motion of the left shoulder left elbow and left wrist NEUROLOGICAL: Patient is alert and answering questions He is moving all extremities equally, but is complaining of pain in his left lower extremity SKIN: Warm, Dry, there are scattered bruises and abrasions in multiple stages throughout his extremities ED Treatment Course - LABORATORY CBC & Chemistry Diagram: 12/04/16 08:25 12/04/16 08:25 Medical Decision Making - Medical Decision Making 12/04/16 09:54 Patient ate full breakfast tray, getting an IV banana bag, resting comfortably, alert and not offering complaints at this time Labwork reviewed Laboratory Results - last 24 hr 12/04/16 12/04/16 12/04/16 08:25 08:25 08:25 WBC 11.8 H RBC 4.82 Hgb 15.8 Hct 46.7 MCV 96.7 H MCHC 33.8 RDW 12.4 Plt Count 174 MPV 9.4 D INR Cancelled Sodium 139 Potassium 4.6 Chloride 104 Carbon Dioxide 24 Anion Gap 11 BUN 28 H Creatinine 1.9 H Creat Clearance w eGFR 34.46 Random Glucose 81 Calcium 8.7 Magnesium 2.3 D Total Bilirubin 0.9 D AST 21 ALT 16 Alkaline Phosphatase 64 Creatine Kinase Troponin I Total Protein 6.9 Albumin 3.4 L Urine Color Urine Appearance Urine pH Ur Specific [place] Urine Protein Urine Glucose (UA) Urine Ketones Urine Blood Urine Nitrite Urine Bilirubin Urine Urobilinogen Ur Leukocyte Esterase Alcohol, Quantitative 12/04/16 12/04/16 12/04/16 08:25 08:25 08:35 WBC RBC Hgb Hct MCV MCHC RDW Plt Count MPV INR Sodium Potassium Chloride Carbon Dioxide Anion Gap BUN Creatinine Creat Clearance w eGFR Random Glucose Calcium Magnesium Total Bilirubin AST ALT Alkaline Phosphatase Creatine Kinase 43 Troponin I < 0.03 L Total Protein Albumin Urine Color Yellow Urine Appearance Clear Urine pH 5.5 Ur Specific [place] 1.015 Urine Protein 2+ H Urine Glucose (UA) Negative Urine Ketones Negative Urine Blood Trace-lysed Urine Nitrite Negative Urine Bilirubin Negative Urine Urobilinogen 0.2 e.u/dl Ur Leukocyte Esterase Negative Alcohol, Quantitative < 5.0 Today's creatinine 1.9, prior creatinine documented at 2.2 (11/03/16) Magnesium normal EKG Normal sinus rhythm with first degree AV block Left axis deviation -53 Left anterior fascicular block Prolonged QT, with a QTC of [address]-T waves When compared to the EKG of 11/04/16 Today's EKG is unchanged from the prior EKG 12/04/16 10:00 X-rays Left tib-fib-no fracture Left knee series-no fracture, 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-no acute fracture Left femur-no acute fracture Left ankle series-no acute fracture Patient is alert, states he feels fine, and has someone to pick him up 12/04/16 10:33 Pt is ambulatory with his cane without difficulty Family member here to pick him up *DC/Admit/Observation/Transfer Diagnosis at time of Disposition: Contusion of leg, left, Falls frequently - Discharge Dispostion Disposition: HOME Condition at time of disposition: Good - Referrals Referrals: Cali Patel MD [Primary Care Provider] - Call tomorrow - Patient Instructions Additional Instructions: Tylenol for discomfort if needed Ice packs off and on for the next 24-48 hours if needed Do not drink alcohol !!!! Followup with your primary care physician in 24-48 hours Return immediately if you worsen in any way
[2016-12-04] MEDS ORDERED: FOLIC ACID INJECTION - 1 MG, THIAMINE HCL 100 MG, MULTIVIT INJECTION ADULT 10 ML in SOD... IVPB ONE (07:56)
[2016-12-04] MEDS ORDERED: THIAMINE HCL 200 MG/2 ML VIAL ONE (08:02)
[2016-12-04] MEDS ORDERED: MULTIVIT INJ. ADULT COMBO WITH VIT K 1 COMBO 10 ML VIAL IV ONE (08:03)
[2016-12-04] MEDS ORDERED: FOLIC ACID 5 MG/1 ML ONE (08:05)
[2016-12-04 08:30] VITALS: BP 153/68
[2016-12-04 09:05] LABS: CPK(DFH) 43 IU/L (38-174)
[2016-12-04 09:06] LABS: ALBUMIN 3.4 g/dl (3.5-5.0); ALK PHOS 64 U/L (32-92); ANION GAP 11 (8-16); BILIRUBIN,TOTAL 0.9 mg/dl (0.2-1.0); CALCIUM 8.7 mg/dl (8.4-10.2); CO2 24 mmol/L (22-28); CREATININE 1.9 mg/dl (0.6-1.3); GLUCOSE,RANDOM 81 mg/dl (74-106); MAGNESIUM 2.3 mg/dL (1.8-2.4); SGOT/AST 21 U/L (10-42); SGPT/ALT 16 U/L (10-40); TOT PROT 6.9 g/dl (6.4-8.3)
[2016-12-04 09:07] LABS: PH,URINE 5.5 (4.5-8); URINE APPEARANCE Clear; URINE BILIRUBIN Negative (NEGATIVE); URINE BLOOD Trace-lysed (NEGATIVE); URINE GLUCOSE (UA) Negative (NEGATIVE); URINE KETONE Negative (NEGATIVE); URINE LEUK ESTERASE Negative (NEGATIVE); URINE NITRITE Negative (NEGATIVE); URINE UROBILINOGEN 0.2 E.U/dl (0.2-1.0)
[2016-12-04 09:10] LABS: MCH 32.7 pg (25.7-33.7); MCHC 33.8 g/dl (32.0-35.9); MEAN CELL VOLUME 96.7 fl (80-96); MEAN PLT VOLUME 9.4 fl (7.5-11.1); PLATELET COUNT 174 K/MM3 (134-434); RDW 12.4 % (11.9-15.9); WHITE BLOOD COUNT 11.8 K/mm3 (4.0-10.8)
[2016-12-04 09:17] LABS: URINE COLOR YELLOW; URINE PROTEIN 2+ (NEGATIVE)
[2016-12-04 09:35] LABS: TROPONIN I (DFP) < 0.03 ng/ml (0.03-0.50)
[2016-12-04] MEDS ORDERED: ACETAMINOPHEN 325 MG TABLET (FP) ONE (10:07)
[2016-12-04] MEDS ORDERED: ACETAMINOPHEN 325 MG TABLET (FP) PO ONE (10:07)
[2016-12-04 14:59] LABS: URINE BACTERIA NEGATIVE /hpf (NEGATIVE); URINE RBC 0-2 /hpf (0-3); URINE WBC 0-1 (3-5)
--- NOTE | 2016-12-08 10:57 | EKG ---
Test Reason : Blood Pressure : / mmHG Vent. Rate : 085 BPM Atrial Rate : 085 BPM P-R Int : 220 ms QRS Dur : 084 ms QT Int : 410 ms P-R-T Axes : 063 -53 076 degrees QTc Int : 487 ms SINUS RHYTHM WITH 1ST DEGREE A-V BLOCK PULMONARY DISEASE PATTERN LEFT ANTERIOR FASCICULAR BLOCK PROLONGED QT NONSPECIFIC T WAVE ABNORMALITY ABNORMAL ECG WHEN COMPARED WITH ECG OF 04-NOV-2016 00:36, NO SIGNIFICANT CHANGE WAS FOUND Confirmed by SOPHIA YORK MD ([id number]) on 12/08/2016 10:57:26 AM Referred By: BOBBY Confirmed By:SOPHIA YORK MD
== END 2016-12-04 10:54 | disposition home or self-care (01) ==
LOC: FER 06:33
PROC: 3E033GC Introduction of Other Therapeutic Substance into Peripheral Vein, Percutaneous Approach (ICD-10-PCS; principal; 2016-12-04)
DX: S80.12XA Contusion of left lower leg, initial encounter (principal); W06.XXXA Fall from bed, initial encounter; Z91.81 History of falling; Y93.89 Activity, other specified; Y92.003 Bedroom of unspecified non-institutional (private) residence as the place of occurrence of the external cause; F10.10 Alcohol abuse, uncomplicated; J44.9 Chronic obstructive pulmonary disease, unspecified; E78.00 Pure hypercholesterolemia, unspecified; F17.210 Nicotine dependence, cigarettes, uncomplicated
CPT/HCPCS: 36415; 73523-TC; 73552-TC-LT; 73562-TC-LT; 73590-TC-LT; 73610-TC-LT; 80053; 80307; 81003; 81015; 82550; 83735; 84484; 85027; 93005; 99283-25

== ENCOUNTER 2017-04-03 19:57 | Emergency (ER) | payer OTHER ==
--- NOTE | 2017-04-03 20:00 | PDOC ---
History of Present Illness - History of Present Illness Initial Comments: 04/03/17 20:28 77 y/o M with a PMHx of EtOH abuse, hypercholesterolemia presents to the ED via EMS s/p fall. Patient hit his head, but denies LOC. Patient has a laceration on his head, and a couple of abrasions on his right elbow. History is limited due to patients intoxication. PAST MEDICAL HISTORY: EtOH abuse, hypercholesterolemia PAST SURGICAL HISTORY: hip surgery FAMILY HISTORY: no pertinent history SOCIAL HISTORY: Pt lives alone. MEDICATIONS: reviewed ALLERGIES: As per nursing notes Review of Systems: General: No fevers or chills, no weakness, no weight loss HEENT: (+) head laceration. No change in vision. No sore throat,. No ear pain CardioVascular: No chest pain or shortness of breath Respiratory: No cough, or wheezing. Gastrointestinal: no nausea, vomiting, diarrhea or constipation, No rectal bleeding Genitourinary: No dysuria, hematuria, or frequency Musculoskeletal: No joint or muscle pain or swelling Neurologic: No headache, vertigo, dizziness or loss of consciousness Psychiatric: No depression Skin: (+) right elbow abrasions. No rashes or easy bruising Endocrine: No increased thirst or abnormal weight change Allergic: No skin or latex allergy All other systems reviewed and normal Physical Exam: General: Unkempt with extremely poor hygiene, no acute distress. Appears to be multiple layers of dirt on lower extremities, appears he has not bathed his body for significant time period. HEENT: Superficial 1 cm laceration on posterior occipital area with no active bleeding. Throat: Normal, tonsils normal, no erythema or exudate Neck: No cervical spine tenderness to palpation. Supple, no meningeal signs, no lymphadenopathy Eyes: Pupils equal reactive and round, extraocular motion intact Chest: Nontender to palpation Cardiac: S1-S2 normal, regular rate and rhythm, no murmurs rubs or gallops Respiratory: Mild decrease in air bilaterally with mild expiratory wheezing bilaterally. No tachypnea or use of accessory muscles with respiration. Abdomen: Soft, nondistended, normal bowel sounds, nontender to palpation diffusely Extremities: Contusion with 2 small abrasions over the right elbow, no bony tenderness, full ROM without discomfort, neurovascularly intact. Warm, dry, no cyanosis, clubbing, or edema Skin: No rashes Neuro: Alert and oriented x3, nonfocal exam, grossly intact, normal gait Psych: Normal mood and affect <JansenAriel tayMartha A - Last Filed: 04/03/17 20:28> - General History Source: Patient Exam Limitations: No Limitations - History of Present Illness Initial Comments: 04/03/17 21:10 A portion of this note was documented by scribe services under my direction. I have reviewed the details of the note, within reason, and agree with the documentation. The case summary and management plan written by me. EKG shows sinus bradycardia at a rate of 57 There is a first-degree AV block There is left axis deviation There is nonspecific ST-T wave changes There is no significant change when compared with 12/04/2016 EKG Chest x-ray no acute pathology. Head CT no acute intracranial pathology. <Isaak Vernon I - Last Filed: 04/03/17 21:53> - General Chief Complaint: Injury Stated Complaint: FELL, HIT HEAD, ETOH ABUSE Time Seen by Provider: 04/03/17 20:00 Past History <Martha Jansen Rolo - Last Filed: 04/03/17 20:28> - Past Medical History Anemia: No Asthma: No Cancer: No Cardiac Disorders: No CVA: No COPD: No CHF: No Dementia: No Diabetes: No GI Disorders: No Disorders: No HTN: No Hypercholesterolemia: Yes Kidney Stones: No Liver Disease: No Psychiatric Problems: Yes (ALCOHOLISM) Seizures: No Thyroid Disease: No - Surgical History Abdominal Surgery: No Appendectomy: No Cardiac Surgery: No Cholecystectomy: No Lung Surgery: No Neurologic Surgery: No Orthopedic Surgery: Yes (HIP) - Reproductive History Testicular Surgery: No - Immunization History Td Vaccination: No Immunization Up to Date: No - Suicide/Smoking/Psychosocial Hx Smoking Status: Yes Smoking History: Current every day smoker Have you smoked in the past 12 months: Yes Number of Cigarettes Smoked Daily: 30 Cigars Per Day: 0 'Breaking Loose' booklet given: 12/04/16 Hx Alcohol Use: Yes Drug/Substance Use Hx: No Substance Use Type: Alcohol Hx Substance Use Treatment: No <Isaak Vernon I - Last Filed: 04/03/17 21:53> - Past Medical History Allergies/Adverse Reactions: Allergies Allergy/AdvReac Type Severity Reaction Status Date / Time No Known Allergies Allergy Verified 10/08/16 16:25 Home Medications: Ambulatory Orders Cholecalciferol (Vitamin D3) [Vitamin D3] 2,000 unit PO DAILY 08/05/14 Ferrous Sulfate [Feosol] 325 mg PO DAILY 08/05/14 Losartan 50Mg/Hctz 12.5MG [Hyzaar -] 1 tab PO DAILY 08/05/14 Trauma Specific PMHX - Complaint Specific PMHX Arthritis: No Back Injury: No <Isaak Vernon I - Last Filed: 04/03/17 21:53> *Physical Exam - Vital Signs Last Vital Signs Temp Pulse Resp BP Pulse Ox 98.2 F 84 19 152/86 95 04/03/17 19:58 04/03/17 19:58 04/03/17 19:58 04/03/17 19:58 04/03/17 19:58 <Martha Jansen - Last Filed: 04/03/17 20:28> ED Treatment Course - LABORATORY CBC & Chemistry Diagram: 04/03/17 20:50 04/03/17 20:50 <Isaak Vernon I - Last Filed: 04/03/17 21:53> *DC/Admit/Observation/Transfer - Attestations Scribe Attestion: 04/03/17 20:29 Documentation prepared by Martha Jansen, acting as forensic medical examiner for Isaak Vernon MD. <Martha Jansen - Last Filed: 04/03/17 20:28> <Isaak Vernon I - Last Filed: 04/03/17 21:53> Diagnosis at time of Disposition: Fall from standing Qualifiers: Encounter type: initial encounter Qualified Code(s): W19.XXXA - Unspecified fall, initial encounter Elbow abrasion Qualifiers: Encounter type: initial encounter Laterality: right Qualified Code(s): S50.311A - Abrasion of right elbow, initial encounter Abrasion of scalp Qualifiers: Encounter type: initial encounter Qualified Code(s): S00.01XA - Abrasion of scalp, initial encounter - Discharge Dispostion Condition at time of disposition: Good - Referrals Referrals: Cali Patel MD [Primary Care Provider] - - Patient Instructions Additional Instructions: I discussed the physical exam findings, ancillary test results and final diagnoses with the patient. I answered all of the patient's questions. The patient was satisfied with the care received and felt comfortable with the discharge plan and treatment plan. The patient will call their primary care physician within 24 hours to arrange follow-up and will return to the Emergency Department with any new, persistent or worsening symptoms.
[2017-04-03 20:17] VITALS: BP 152/86; PULSE 84; TEMP 98.2; BMI 21.0
[2017-04-03] MEDS ORDERED: FOLIC ACID INJECTION - 1 MG, THIAMINE HCL 100 MG, MULTIVIT INJECTION ADULT 10 ML in SOD... IVPB ONE (20:18)
[2017-04-03] MEDS ORDERED: MULTIVIT INJ. ADULT COMBO WITH VIT K 1 COMBO 10 ML VIAL IV ONE (20:33)
[2017-04-03] MEDS ORDERED: THIAMINE HCL 200 MG/2 ML VIAL ONE (20:33)
[2017-04-03] MEDS ORDERED: FOLIC ACID 5 MG/1 ML ONE (20:33)
[2017-04-03 21:16] LABS: ALBUMIN 3.3 g/dl (3.5-5.0); ALK PHOS 54 U/L (32-92); ANION GAP 8 (8-16); CALCIUM 8.3 mg/dl (8.4-10.2); CO2 22 mmol/L (22-28); CPK 69 IU/L (39-308); CREATININE 2.1 mg/dl (0.6-1.3); GLUCOSE,RANDOM 81 mg/dl (74-106); SGOT/AST 19 U/L (10-42); SGPT/ALT 16 U/L (10-40); TOT PROT 6.4 g/dl (6.4-8.3)
[2017-04-03 21:18] LABS: BASOPHIL 0.9 % (0-2.0); EOSINOPHIL 3.1 % (0-4.5); MCH 32.3 pg (25.7-33.7); MCHC 34.3 g/dl (32.0-35.9); MEAN CELL VOLUME 94.3 fl (80-96); MEAN PLT VOLUME 8.4 fl (7.5-11.1); NEUTROPHILS 67.5 % (42.8-82.8); PLATELET COUNT 154 K/MM3 (134-434); RDW 12.9 % (11.9-15.9); WHITE BLOOD COUNT 9.8 K/mm3 (4.0-10.8)
[2017-04-03 21:27] LABS: TROPONIN I (DFP) < 0.03 ng/ml (0.03-0.50)
--- NOTE | 2017-04-07 20:54 | EKG ---
Test Reason : Blood Pressure : / mmHG Vent. Rate : 057 BPM Atrial Rate : 057 BPM P-R Int : 000 ms QRS Dur : 094 ms QT Int : 472 ms P-R-T Axes : -01 -41 093 degrees QTc Int : 459 ms SINUS BRADYCARDIA WITH 1ST DEGREE A-V BLOCK LEFT AXIS DEVIATION NONSPECIFIC T WAVE ABNORMALITY ABNORMAL ECG WHEN COMPARED WITH ECG OF 04-DEC-2016 08:42, VENT. RATE HAS DECREASED BY 28 BPM NONSPECIFIC T WAVE ABNORMALITY NOW EVIDENT IN ANTEROLATERAL LEADS NO CLINICAL INFORMATION IS AVAILABLE REPEAT EKG IF CLINICALLY INDICATED Confirmed by RICARDO ESTRADA MD ([id number]) on 04/07/2017 8:54:06 PM Referred By: DR MCGARRY Confirmed By:RICARDO ESTRADA MD
== END 2017-04-03 22:00 | disposition home or self-care (01) ==
LOC: SUPCPDRO 19:57 → FER 19:57
PROC: 3E033GC Introduction of Other Therapeutic Substance into Peripheral Vein, Percutaneous Approach (ICD-10-PCS; principal; 2017-04-03)
DX: S50.311A Abrasion of right elbow, initial encounter (principal); S00.01XA Abrasion of scalp, initial encounter; F17.210 Nicotine dependence, cigarettes, uncomplicated; F10.120 Alcohol abuse with intoxication, uncomplicated; E78.00 Pure hypercholesterolemia, unspecified; W18.39XA Other fall on same level, initial encounter; Y93.89 Activity, other specified; Y92.9 Unspecified place or not applicable
CPT/HCPCS: 36415; 70450-TC; 71010-TC; 80053; 84484; 85025; 93005; 96365; 99283-25

== ENCOUNTER 2018-08-09 01:36 | Emergency (ER) | payer OTHER ==
[2018-08-09 01:46] VITALS: BP 188/85; PULSE 90; BMI 25.0
[2018-08-09] MEDS ORDERED: IBUPROFEN 600 MG TABLET (FP) PO ONE ×2 (01:50→01:51)
--- NOTE | 2018-08-09 01:54 | PDOC ---
History of Present Illness - General Chief Complaint: Pain, Acute Stated Complaint: LEFT JAW PAIN Time Seen by Provider: 08/09/18 01:48 History Source: Patient Exam Limitations: No Limitations - History of Present Illness Initial Comments: 08/09/18 01:51 This is a 78-year-old male who comes in complaining of left jaw pain. Patient came in by EMS. Patient is relatively unkempt and has poor hygiene otherwise patient denies any fevers or chills. Patient has not taken anything for strep pain. Allergies: None Past Medical History: none Social history: Lives with family. No smoking. No alcohol. No illicit drugs. Surgical history: None General: No fevers or chills, no weakness, no weight loss HEENT: No change in vision. No sore throat,. No ear pain CardioVascular: no chest discomfort. No shortness of breath Respiratory:No cough, or wheezing. Gastrointestinal: no nausea, vomiting, diarrhea or constipation, No rectal bleeding Genitourinary: No dysuria, hematuria, or frequency Musculoskeletal: No joint or muscle pain or swelling Neurologic: No headache, vertigo, dizziness or loss of consciousness Psychiatric: nor depression Skin: No rashes or easy bruising Endocrine: no increased thirst or abnormal weight change Allergic: no skin or latex allergy All other systems reviewed and normal GENERAL: The patient is awake, alert, and fully oriented, in no acute distress. HEAD: Normal with no signs of trauma. The patient complains of tenderness in the area of his left jaw. There is no erythema, increase in warmth, swelling, mass or palpable collection. Patient refuses to open his mouth so he can see inside his mouth says is not his teeth since jaw. EYES: Pupils equal, round and reactive to light, extraocular movements intact, sclera anicteric, conjunctiva clear. EXTREMITIES:atraumatic, Normal range of motion, no edema. NEUROLOGICAL: Normal speech, normal gait. PSYCH: Normal mood, normal affect. SKIN: Warm, Dry, normal turgor, no rashes or lesions noted. Assessment and plan: This is an 78-year-old male who comes in complaining of left jaw pain. Patient was given Motrin for the pain a prescription was sent to his pharmacy and patient discharged. Past History - Past Medical History Allergies/Adverse Reactions: Allergies Allergy/AdvReac Type Severity Reaction Status Date / Time No Known Allergies Allergy Verified 08/09/18 01:40 Home Medications: Ambulatory Orders Cholecalciferol (Vitamin D3) [Vitamin D3] 2,000 unit PO DAILY 08/05/14 Ferrous Sulfate [Feosol] 325 mg PO DAILY 08/05/14 Losartan 50Mg/Hctz 12.5MG [Hyzaar -] 1 tab PO DAILY 08/05/14 Anemia: No Asthma: No Cancer: No Cardiac Disorders: No CVA: No COPD: No CHF: No Dementia: No Diabetes: No GI Disorders: No Disorders: No HTN: No Hypercholesterolemia: Yes Kidney Stones: No Liver Disease: No Psychiatric Problems: Yes (ALCOHOLISM) Seizures: No Thyroid Disease: No - Surgical History Abdominal Surgery: No Appendectomy: No Cardiac Surgery: No Cholecystectomy: No Lung Surgery: No Neurologic Surgery: No Orthopedic Surgery: Yes (HIP) - Reproductive History Testicular Surgery: No - Immunization History Td Vaccination: No Immunization Up to Date: No - Suicide/Smoking/Psychosocial Hx Smoking Status: Yes Smoking History: Current every day smoker Have you smoked in the past 12 months: Yes Number of Cigarettes Smoked Daily: 30 Cigars Per Day: 0 Information on smoking cessation initiated: Yes 'Breaking Loose' booklet given: 12/04/16 Hx Alcohol Use: Yes Drug/Substance Use Hx: No Substance Use Type: Alcohol Hx Substance Use Treatment: No *Physical Exam - Vital Signs Last Vital Signs Temp Pulse Resp BP Pulse Ox 90 18 188/85 H 97 08/09/18 01:41 08/09/18 01:41 08/09/18 01:41 08/09/18 01:41 Moderate Sedation - Procedure Monitoring Vital Signs: Procedure Monitoring Vital Signs Temperature Pulse Rate 90 08/09/18 01:41 Respiratory Rate 18 08/09/18 01:41 Blood Pressure 188/85 H 08/09/18 01:41 O2 Sat by Pulse Oximetry (%) 97 08/09/18 01:41 *DC/Admit/Observation/Transfer Diagnosis at time of Disposition: Sprain of jaw, left side, initial encounter Qualifiers: Encounter type: initial encounter Qualified Code(s): S03.42XA - Sprain of jaw, left side, initial encounter - Discharge Dispostion Disposition: HOME Condition at time of disposition: Stable - Referrals - Patient Instructions Additional Instructions: For the pain take Motrin [id number] U can take 2 or 3 tablets 3 times a day with food don't take on an empty stiomach. Return to the emergency department immediately with ANY new, persistent or worsening symptoms. Continue any medications as previously prescribed by your physician. You should follow up with your primary doctor as soon as possible regarding today's emergency department visit. . Please make sure your doctor reviews the results of your emergency evaluation. Thank you for coming to the Emergency Department today for your care. It was a pleasure to see you today. Please note that your evaluation is INCOMPLETE until you follow-up with your doctor. - Post Discharge Activity
== END 2018-08-09 02:16 | disposition home or self-care (01) ==
LOC: FER 01:36
DX: S03.42XA Sprain of jaw, left side, initial encounter (principal); X58.XXXA Exposure to other specified factors, initial encounter; Y92.9 Unspecified place or not applicable; Y93.9 Activity, unspecified; F17.210 Nicotine dependence, cigarettes, uncomplicated; E78.00 Pure hypercholesterolemia, unspecified; F10.99 Alcohol use, unspecified with unspecified alcohol-induced disorder
CPT/HCPCS: 99281-25